=== PATIENT | female | born 1965 | race Caucasian/White ===

== ENCOUNTER 2016-12-25 14:25 | Emergency (ER) | payer MEDICARE ==
[2016-12-25 15:09] VITALS: PULSE 79
[2016-12-25] MEDS ORDERED: XYLOCAINE 1% HCL 20 ML MDV IJ ONE (17:28)
--- NOTE | 2016-12-25 17:31 | ERPHSYRPT ---
- History of Present Illness Time Seen by Provider: 12/25/16 17:29 Source: patient Exam Limitations: no limitations Patient Subjective Stated Complaint: pt here for a laceration to base left 4th toe,no bleeding, pt has neuropathy and unsure of how she hurt foot or how long Triage Nursing Assessment: pt has 1/2cm laceration to 4 toe loft foot Physician History: The patient is an obese 51-year-old female with her complaining of a laceration of the base of her left fourth toe that may have occurred sometime today. She has neuropathy and didn't notice the laceration until the home health nurse discovered it. PMH of HTN, DM, high cholesterol, GERD, and neuropathy. Timing/Duration: today Severity: mild Location: feet Possible Causes: no cause identified Allergies/Adverse Reactions: No Known Drug Allergies Allergy (Unverified 12/25/16 15:10) Hx Tetanus, Diphtheria Vaccination/Date Given: Yes Hx Influenza Vaccination/Date Given: Yes Hx Pneumococcal Vaccination/Date Given: Yes Immunizations Up to Date: Yes - Review of Systems Constitutional: No Fever, No Chills Eyes: No Symptoms Ears, Nose, & Throat: No Symptoms Respiratory: No Cough, No Dyspnea Cardiac: No Chest Pain, No Edema, No Syncope Abdominal/Gastrointestinal: No Abdominal Pain, No Nausea, No Vomiting, No Diarrhea Genitourinary Symptoms: No Dysuria Musculoskeletal: No Back Pain, No Neck Pain Skin: Other (lac) Neurological: No Dizziness, No Focal Weakness, No Sensory Changes Psychological: No Symptoms Endocrine: No Symptoms Hematologic/Lymphatic: No Symptoms Immunological/Allergic: No Symptoms All Other Systems: Reviewed and Negative - Past Medical History Pertinent Past Medical History: Yes Neurological History: Peripheral Neuropathy ENT History: Other Cardiac History: High Cholesterol, Hypertension Endocrine Medical History: Diabetes Type I Musculoskeletal History: Arthritis, Degenerative Disk Disease, Osteoporosis GI Medical History: GERD Other Medical History: legally blind - Past Surgical History Past Surgical History: Yes Gastrointestinal: Cholecystectomy Other Surgical History: eye and jaw surg. amputations - Social History Smoking Status: Never smoker Exposure to second hand smoke: Yes Drug Use: none Patient Lives Alone: No - Female History Hx Last Menstrual Period: post - Nursing Vital Signs Nursing Vital Signs: Initial Vital Signs Temperature 98.3 F 12/25/16 15:03 Pulse Rate 79 12/25/16 15:03 Respiratory Rate 18 12/25/16 15:03 Blood Pressure 124/58 12/25/16 15:03 O2 Sat by Pulse Oximetry 96 12/25/16 15:03 Pain Scale Pain Intensity 0 - Physical Exam General Appearance: no apparent distress, alert Eye Exam: PERRL/EOMI, eyes nml inspection Ears, Nose, Throat Exam: normal ENT inspection, pharynx normal, moist mucous membranes Neck Exam: normal inspection, non-tender, supple, full range of motion Respiratory Exam: normal breath sounds, lungs clear, No respiratory distress Cardiovascular Exam: regular rate/rhythm, normal heart sounds Gastrointestinal/Abdomen Exam: soft, mass, No tenderness Pelvic Exam: not done Rectal Exam: not done Back Exam: normal inspection, normal range of motion, No CVA tenderness, No vertebral tenderness Extremity Exam: normal inspection, normal range of motion Neurologic Exam: alert, oriented x 3, cooperative, normal mood/affect, sensation nml, No motor deficits Skin Exam: laceration (base of left 4th toe) SpO2 Interpretation: normal SpO2: 96 Oxygen Delivery: Room Air Procedures - Laceration/Wound Repair Left Toe Wound Location: Left, foot (4th toe) Wound's Depth, Shape: linear Wound Explored: clean Irrigated: Yes Hibiclens Prep: Yes Wound Repaired With: sutures Suture Size/Type: 5-0 Number of Sutures: 3 Sterile Dressing Applied?: Yes Ordered Tests: Medication Summary Discontinued Medications Generic Name Dose Route Start Last Admin Trade Name Chaim PRN Reason Stop Dose Admin Lidocaine HCl 10 ml 12/25/16 17:28 12/25/16 17:37 Xylocaine 1% Hcl 20 Ml Mdv IJ 12/25/16 17:29 10 ml STAT ONE Administration Lidocaine HCl Confirm 12/25/16 17:33 Xylocaine 1% Hcl 20 Ml Mdv Administered 12/25/16 17:34 Dose 5 ml .ROUTE .STK-MED ONE Lidocaine HCl Confirm 12/25/16 17:37 Xylocaine 1% Hcl 20 Ml Mdv Administered 12/25/16 17:38 Dose 10 ml .ROUTE .STK-MED ONE - Progress Progress: improved Counseled pt/family regarding: diagnosis, need for follow-up - Departure Time of Disposition: 17:57 Departure Disposition: Home Clinical Impression: Laceration of left foot Condition: Stable Critical Care Time: No Referrals: ZAHRA KELLEY NP [Primary Care Provider] - Instructions: Care for a Laceration After Repair Additional Instructions: You had a laceration to the base of your left fourth toe that was repaired with 3 sutures. Follow-up later this week with your cast iron drain pipe layer for reevaluation. If all goes well, follow-up in 12-14 days for suture removal. Take Augmentin 875 to times a day for 10 days. Keep the area clean and dry. Prescriptions: Amoxicillin/Potassium Clav [Augmentin 875-125 Tablet] 875 mg PO BID #20 tablet
[2016-12-25] MEDS ORDERED: XYLOCAINE 1% HCL 20 ML MDV ONE ×2 (17:33→17:37)
[2016-12-25 18:17] VITALS: BP 134/62; O2SAT 97
== END 2016-12-25 18:17 | disposition home or self-care (01) ==
LOC: ED 14:25
DX: S91.312A Laceration without foreign body, left foot, initial encounter (principal); I10 Essential (primary) hypertension; E11.9 Type 2 diabetes mellitus without complications; E78.00 Pure hypercholesterolemia, unspecified; K21.9 Gastro-esophageal reflux disease without esophagitis; G62.9 Polyneuropathy, unspecified
CPT/HCPCS: 99284